=== PATIENT | male | born 1950 | race Caucasian/White ===

== ENCOUNTER 2018-05-21 09:05 | Outpatient (CLI) | payer MEDICARE ==
--- NOTE | 2018-05-21 10:22 | RAD ---
FOUR VIEWS RIGHT SHOULDER: Date: 05-21-18 Comparison: 08-08-13 History: Acute pain of right shoulder. FINDINGS: There is widening of the right acromioclavicular joint with a small corticated osseous density superi or to the right acromioclavicular joint. Question a history of prior surgery. There is no widening of the coracoclavicular interspace. Incompletely imaged cervical spine hardware is present. There is no displaced fracture or evidence of dislocation seen. IMPRESSION: Widening of the right acromioclavicular joint, etiology uncertain. Perhaps this is on the basis of pr ior surgery. Clinical correlation is requested to exclude the possibility of an AC joint injury. No a cute fracture. POS: [facility]
== END 2018-05-21 09:06 | disposition home or self-care (01) ==
LOC: RAD 09:05
PROVIDERS: ATTEND Nurse Practitioner Family
DX: M25.511 Pain in right shoulder (principal); M25.811 Other specified joint disorders, right shoulder

== ENCOUNTER 2021-09-20 09:13 | Emergency (ER) | payer MEDICARE ==
[2021-09-20 10:24] LABS: #Eosinphils 0.2 thou/uL (0.0-0.7); #Lymphocytes 1.3 thou/uL (1.20-3.40); #Monocytes 0.7 thou/uL (0.11-0.59); #Neutrophils 7.5 thou/uL (1.40-6.50); %Basophils 0.2 % (0.0-1.0); %Eosinophils 1.7 % (0.0-10.0); %Monocytes 7.2 % (0.0-10.0); %Neutrophils 77.9 % (42.0-75.0); Mean Corpuscular HGB CONC 32.3 g/dL (32.0-36.0); Mean Corpuscular Hemoglobin 32.4 pg (27.0-31.0); Mean Platelet Volume 7.2 fL (7.4-10.4); Platelet Count 244 thou/uL (130-400); RBC Distribution Width 14.5 % (11.5-14.5); Red Blood Cell (RBC) Count 3.72 mill/uL (4.70-6.10); White Blood Cell (WBC) Count 9.6 thou/uL (4.8-10.8)
[2021-09-20 10:43] LABS: ALT (SGPT) 10 U/L (8-55); AST (SGOT) 14 U/L (5-34); Albumin 3.3 g/dL (3.4-4.8); Alkaline Phosphatase 97 U/L (40-110); Anion Gap 12 mmol/L (10-20); BUN (Urea Nitrogen) 8 mg/dL (8.4-25.7); Bilirubin, Total 0.9 mg/dL (0.2-1.2); Calc. Creatinine Clearance 0 mL/min (70-130); Calcium 8.7 mg/dL (7.8-10.44); Carbon Dioxide 24 mmol/L (23-31); Chloride 103 mmol/L (98-107); Globulin 3.3 g/dL (2.4-3.5); Glucose 103 mg/dL (83-110); Potassium 3.7 mmol/L (3.5-5.1); Protein, Total 6.6 g/dL (5.8-8.1); Sodium 135 mmol/L (136-145)
== END 2021-09-20 12:22 | disposition home or self-care (01) ==
LOC: ERS 09:13
DX: M25.431 Effusion, right wrist (principal); I25.2 Old myocardial infarction; I50.9 Heart failure, unspecified; E78.5 Hyperlipidemia, unspecified; E03.9 Hypothyroidism, unspecified; I10 Essential (primary) hypertension; Z87.891 Personal history of nicotine dependence; Z79.82 Long term (current) use of aspirin; Z79.899 Other long term (current) drug therapy
CPT/HCPCS: 36415; 80053; 85025; 85652; 86140; 94760